=== PATIENT | female | born 1985 | race Caucasian/White ===

== ENCOUNTER 2023-07-23 08:15 | Emergency (ER) | payer BC, SELFPAY ==
[2023-07-23 08:18] VITALS: BP 127/77
--- NOTE | 2023-07-23 09:04 | ED.GENMED ---
History of Present Illness
General
Chief Complaint: Skin Problem
Source: patient
Time Seen by Provider: 07/23/23 08:45
Travel History
Have you had any contact with someone who has COVID-19?: No
Do you have any symptoms of coronavirus? Fever > 100 degrees, chills, cough, shortness of breath, sore throat, loss of taste or smell, muscle aches, or headache?: No
History of Present Illness
History of Present Illness:
37-year-old female presenting emergency department for evaluation after excellently cutting her left hand when a lamp broke apart in her left hand sustaining laceration to the ulnar aspect of the hand as well as 2 separate smaller abrasions on the
middle finger and thumb. Tetanus vaccine is up-to-date. No other injuries were sustained. Patient is right-hand dominant.
Past History
Past History
ED Past Medical History: None
ED Past Surgical History: Gynecological
Social History
Tobacco: Non-smoker
Alcohol: Occasional
Drug: None
Personal:
Living: with family
Employment: Employed
Family History
Family History: Other (No history of migraine, uncle with cerebral aneurysm)
Review of Systems
Review of Systems
All Other Systems: ROS reviewed and negative except as documented in HPI and ROS
Phy Exam
Physical Exam
Physical Exam:
GENERAL: Alert , in no apparent distress
EYE: conjunctiva clear
Head: Normocephalic atraumatic
NECK: Supple,
ENT: mmm.
LUNGS: no acute respiratory distress
NEUROLOGICAL: Alert and oriented
SKIN: Warm and dry, distal fifth metacarpal level has a V shaped very superficial laceration measuring less than 1 cm in size. There is a vertically oriented abrasion aspect thumb with no active bleeding. There are 2 separate smaller abrasions
over the palmar surface of the middle finger distal phalanx and the distal phalanx palmar surface of the thumb.
MUSCULOSKELETAL: well perfused. Full range of motion of all digits.
PSYCH: Normal and appropriate interaction.
Scores
Heart Failure Risk
Heart Failure Risk Score: Not Applicable
Heart Score for Chest Pain Patients
STEMI patient?: Not applicable
Withdrawal Assessment of Alcohol
Withdrawal Assessment Completed?: Not applicable
Course
Orders/Labs/Results
Orders:
Orders
07/23/23 09:00
Tetanus/Diphth/Acelpertussis [Adacel] 0.5 ml IM .ONCE ONE
Vital Signs
Initial and Last Documented VS:
Initial Vital Signs
Temp Resp BP Pulse Ox
98.5 F 16 127/77 100
07/23/23 08:18 07/23/23 08:18 07/23/23 08:18 07/23/23 08:18
Last Documented Vital Signs
Temp Resp BP Pulse Ox
98.5 F 16 127/77 100
07/23/23 08:18 07/23/23 08:18 07/23/23 08:18 07/23/23 08:18
Procedures
Laceration Closure
Left Distal Hand:
Status of Wound: clean
Size of Wound in cm: 0.9
Description of Wound Edges: sharp
Preparation: cleaned with saline
Revision/Debridement: routine- no revision
Type of Closure: Dermabond-skin glue
MDM/Problems Addressed
MDM/Problems Addressed:
Dermabond was placed over the hand laceration at the level of the fifth metacarpal and along the lateral fifth digit. Dressing was placed over this. Patient advised on wound care. Motrin/Tylenol for pain as needed. Patient is otherwise stable
for discharge home.
*Pulse Oximetry
Patient hypoxic: no
*Critical Care Note
Total Time (30-74mins, 75-104mins- exclusive of procedures): Not Applicable
ED Attending Note
-
Portions of this chart may have been created with voice recognition software.� Occasional wrong word or��sound alike� substitutions may have occurred due to the inherent limitations of voice recognition software.
Discharge Plan
Departure
Patient Disposition: Home (Routine Discharge)
Date of Disposition: 07/23/23
Time of Disposition: 09:04
Patient with high blood pressure during this ER visit?: No
Discharge Problem:
Laceration of hand, left
Instructions: Laceration Repair With Glue (DC)
Prescriptions:
No Action
[id number] 1 mg Tablet
1 tab PO DAILY
acetaminophen 325 mg Tablet
650 mg PO Q4HPRN PRN (Reason: mild pain) Qty: 0 0RF
ibuprofen 600 mg Tablet
600 mg PO Q6HPRN PRN (Reason: moderate pain/cramps) Qty: 0 0RF
Referrals:
NONE,* [Family Provider] -
Interventions
Interventions:
*Risk Screen - Suicide Last Done: 07/23/23 09:00
*General Assessment Last Done: 07/23/23 09:00
*Neglect/Abuse Screening Last Done: 07/23/23 09:00
ED- Fall Risk Assessment Last Done: 07/23/23 09:00
*ED COVID-19 Vaccine History Last Done: 07/23/23 08:18
*Nursing Disposition Last Done: 07/23/23 09:14
ED-Skin Assessment Last Done: 07/23/23 09:00
--- NOTE | 2023-07-23 09:14 | EDRN ---
Discharge instructions reviewed with patient. Verbalized understanding.
== END 2023-07-23 09:15 | disposition home or self-care (01) ==
LOC: EMR 08:15
PROVIDERS: EMERGENCY PHYSICIAN Student in an Organized Health Care Education/Training Program
DX: S61.412A Laceration without foreign body of left hand, initial encounter (principal); W26.8XXA Contact with other sharp object(s), not elsewhere classified, initial encounter
CPT/HCPCS: 99282; 12001

== ENCOUNTER 2023-10-10 12:54 | Emergency (ER) | payer BC, SELFPAY ==
[2023-10-10 13:04] VITALS: BP 119/78
[2023-10-10] MEDS: NSS 1000 IV (15:32)
[2023-10-10] MEDS: BENADRYL 25 MG IV (15:33)
[2023-10-10] MEDS: REGLAN 10 MG IV (15:34)
[2023-10-10] MEDS: TORADOL 30 MG IV (15:35)
[2023-10-10 15:41] VITALS: BP 107/81
[2023-10-10 15:49] LABS: % Basophils 0.4 % (0-2); % Eosinophils 0.9 % (0-6); % Immature Granulocytes 0.1 % (0-0.5); % Lymphocytes 22.9 % (20.5-51.1); % Monocytes 8.5 % (1.7-9.3); % Neutrophils 67.2 % (42.2-75.2); Absolute Eosinophils 0.1 10^3/uL (0-0.7); Absolute Lymphocytes 1.6 10^3/uL (1.2-3.4); Absolute Monocytes 0.6 10^3/uL (0.1-0.6); Absolute Neutrophils 4.7 10^3/uL (1.4-6.5); Hemoglobin 12.6 g/dL (12.0-16.0); Mean Corpuscular Hgb 31.8 pg (27.0-31.0); Mean Corpuscular Volume 90.9 fL (81.0-99.0); Mean Platelet Volume 8.9 fL (7.4-10.4); Nucleated Red Blood Cells % 0 %; Platelet Count 304 10^3/uL (130-400); Red Blood Cell Count 3.96 10^6/uL (4.20-5.40); Red Cell Dist. Width 12.9 % (11.5-14.5)
[2023-10-10 16:00] VITALS: BP 99/70
[2023-10-10 16:03] LABS: COVID-19 Antigen Negative (Negative); HCG, Serum Qualitative Screen Negative
[2023-10-10 16:05] LABS: Blood Urea Nitrogen 7 mg/dl (7-17); Calcium 9.7 mg/dl (8.4-10.2); Carbon Dioxide 24 mmol/L (22-30); Chloride 107 mmol/L (98-107); Glucose 93 mg/dl (70-99); Sodium 141 mmol/L (135-145); eGFR > 60.00
[2023-10-10 16:23] VITALS: BP 103/74
--- NOTE | 2023-10-10 16:46 | ED.GENMED ---
History of Present Illness
General
Chief Complaint: Headache
Source: patient
Time Seen by Provider: 10/10/23 14:58
Travel History
Have you had any contact with someone who has COVID-19?: No
Do you have any symptoms of coronavirus? Fever > 100 degrees, chills, cough, shortness of breath, sore throat, loss of taste or smell, muscle aches, or headache?: No
History of Present Illness
History of Present Illness:
38-year-old female presenting to the emergency department for evaluation of a frontal headache that started yesterday, today pain started more in the posterior portion of her head and neck and going down into her lower back. Patient attempted
Motrin, Tylenol, Sudafed and DayQuil with no relief. She states that yesterday she also had a slight sore throat and some congestion which seems to be improved today. Patient denies any fevers, chills, rigors, nausea, vomiting, visual
disturbances, focal weakness or numbness or any other concerns. She does note history of intermittent migraines in the past but states this headache does feel a little bit different as her headaches are normally improved with OTC meds.
Past History
Past History
ED Past Medical History: None
ED Past Surgical History: Gynecological
Social History
Tobacco: Non-smoker
Alcohol: Occasional
Drug: None
Personal:
Living: with family
Employment: Employed
Family History
Family History: Other (No history of migraine, uncle with cerebral aneurysm)
Review of Systems
Review of Systems
All Other Systems: ROS reviewed and negative except as documented in HPI and ROS
Phy Exam
Physical Exam
Physical Exam:
GENERAL: Alert , in no apparent distress
EYE: conjunctiva clear
NECK: Supple, no significant adenopathy. no meningismus
ENT: o/p clr, mmm.
CARDIAC: Regular rate and rhythm
LUNGS: Clear breath sounds bilaterally, no acute respiratory distress, no wheezes/rales/rhonchi
NEUROLOGICAL: Alert and oriented
SKIN: Warm and dry, skin intact.
MUSCULOSKELETAL: well perfused.
PSYCH: Normal and appropriate interaction.
Scores
Heart Failure Risk
Heart Failure Risk Score: Not Applicable
Heart Score for Chest Pain Patients
STEMI patient?: Not applicable
Withdrawal Assessment of Alcohol
Withdrawal Assessment Completed?: Not applicable
Course
Orders/Labs/Results
Orders:
Orders
10/10/23 15:18
0.9% Sodium Chloride 1000 ml [Nss] 1,000 ml IV BOLUS
Diphenhydramine [Benadryl] 25 mg IV NOW STA
Ketorolac [Toradol] 30 mg IV NOW STA
Metoclopramide [Reglan] 10 mg IV NOW STA
Test Result ONCE
10/10/23 15:32
Basic Metabolic Panel Urgent
COVID-19 Antigen Urgent
Source: Nasal Swab
Complete Blood Count/With Diff Urgent
HCG, Serum Qualitative Screen Urgent
Abnormal Lab Results
10/10/23
15:32
RBC 3.96 L 10^6/uL
(4.20-5.40)
Hct 36.0 L %
(37.0-47.0)
MCH 31.8 H pg
(27.0-31.0)
10/10/23 15:32
10/10/23 15:32
Vital Signs
Initial and Last Documented VS:
Initial Vital Signs
Temp Pulse Resp BP Pulse Ox
98.1 F 79 18 119/78 100
10/10/23 13:04 10/10/23 13:04 10/10/23 13:04 10/10/23 13:04 10/10/23 13:04
Last Documented Vital Signs
Temp Pulse Resp BP Pulse Ox
98.1 F 79 18 103/74 100
10/10/23 13:04 10/10/23 16:57 10/10/23 13:04 10/10/23 16:57 10/10/23 13:04
MDM/Problems Addressed
Differential Diagnosis Includes:
Migraine headache, tension headache, muscle spasm, I do not have concern for intracranial bleeding nor meningitis
MDM/Problems Addressed:
38-year-old female presenting to the emergency department for evaluation of headache and lower back pain. Attempted dzkq-[id number]-[id number] measures at home with minimal relief. Patient's exam is otherwise reassuring and she is in no acute distress.
Will treat with migraine cocktail, fluids. Lab work ordered. Reassessment following.
*Pulse Oximetry
Patient hypoxic: no
*Critical Care Note
Total Time (30-74mins, 75-104mins- exclusive of procedures): Not Applicable
Data Reviewed
Further Testing Considered But Not Given:
Considered head CT but given lack of physical exam findings decision was made to forego this for the time being but if symptoms do not improve will obtain CT to further evaluate
Patient Management
Escalation/DeEscalation of care consider admission/obs:
Patient reports headache is fully resolved. Still notes some mild discomfort in her back but feels well and would like to be discharged home. Aware of return precautions but otherwise stable for discharge home
ED Attending Note
-
Portions of this chart may have been created with voice recognition software.� Occasional wrong word or��sound alike� substitutions may have occurred due to the inherent limitations of voice recognition software.
Discharge Plan
Departure
Patient Disposition: Home (Routine Discharge)
Date of Disposition: 10/10/23
Time of Disposition: 16:46
Patient with high blood pressure during this ER visit?: No
Discharge Problem:
Headache
Instructions: Headache, Adult (DC)
Prescriptions:
No Action
ckjnopqo-mxw-Pd-FA 1 mg Tablet
1 tab PO DAILY
acetaminophen 325 mg Tablet
650 mg PO Q4HPRN PRN (Reason: mild pain) Qty: 0 0RF
ibuprofen 600 mg Tablet
600 mg PO Q6HPRN PRN (Reason: moderate pain/cramps) Qty: 0 0RF
Referrals:
NONE,* [Family Provider] -
Interventions
Interventions:
*Risk Screen - Suicide Last Done: 10/10/23 13:04
*General Assessment Last Done: 10/10/23 13:04
*Neglect/Abuse Screening Last Done: 10/10/23 13:04
*Nursing Disposition Last Done: 10/10/23 16:57
ED-Musculoskeletal Assessment Last Done: 10/10/23 15:39
ED- Neurological Assessment Last Done: 10/10/23 15:39
Discharge Date and Time
Discharge Date/Time: 10/10/23 16:57
Print Language: YORUBA
[2023-10-10 16:57] VITALS: BP 103/74
== END 2023-10-10 16:57 | disposition home or self-care (01) ==
LOC: EMR 12:54
PROVIDERS: Physician Assistant Medical; EMERGENCY PHYSICIAN Emergency Medicine
DX: R51.9 Headache, unspecified (principal); M54.50 Low back pain, unspecified; Z11.52 Encounter for screening for COVID-19
CPT/HCPCS: 99284; 96374; 96375 ×2; 96361; 80048; 84703; 85025; 87811

== ENCOUNTER → 2024-06-15 15:43 | Outpatient (REF) | payer OTHER, SELFPAY | LOC: PNTC 15:43 | PROVIDERS: ATTENDING PHYSICIAN Student in an Organized Health Care Education/Training Program | DX: Z36.0 Encounter for antenatal screening for chromosomal anomalies (principal); Z36.82 Encounter for antenatal screening for nuchal translucency | CPT/HCPCS: 76801; 76813 ==

== ENCOUNTER → 2024-08-10 15:47 | Outpatient (REF) | payer OTHER, SELFPAY | LOC: PNTC 15:47 | PROVIDERS: ATTENDING PHYSICIAN Student in an Organized Health Care Education/Training Program | DX: O09.519 Supervision of elderly primigravida, unspecified trimester (principal) | CPT/HCPCS: 76811; 76817 ==

== ENCOUNTER → 2024-09-11 09:19 | Outpatient (REF) | payer OTHER, SELFPAY | LOC: REG 09:19 | PROVIDERS: ATTENDING PHYSICIAN Student in an Organized Health Care Education/Training Program | DX: Z34.80 Encounter for supervision of other normal pregnancy, unspecified trimester (principal) | CPT/HCPCS: 36415; 86850; 86900; 86901 ==

== ENCOUNTER → 2024-09-21 09:42 | Outpatient (REF) | payer OTHER, SELFPAY | LOC: PNTC 09:42 | PROVIDERS: ATTENDING PHYSICIAN Obstetrics & Gynecology | DX: O09.522 Supervision of elderly multigravida, second trimester (principal); O43.192 Other malformation of placenta, second trimester | CPT/HCPCS: 76816; 96372 ==

== ENCOUNTER → 2024-11-02 09:24 | Outpatient (REF) | payer OTHER, SELFPAY | LOC: PNTC 09:24 | PROVIDERS: ATTENDING PHYSICIAN Obstetrics & Gynecology | DX: O09.513 Supervision of elderly primigravida, third trimester (principal); O43.193 Other malformation of placenta, third trimester | CPT/HCPCS: 76816 ==

== ENCOUNTER → 2024-11-23 08:51 | Outpatient (REF) | payer OTHER, SELFPAY | LOC: PNTC 08:51 | PROVIDERS: ATTENDING PHYSICIAN Obstetrics & Gynecology | DX: O09.513 Supervision of elderly primigravida, third trimester (principal); O43.103 Malformation of placenta, unspecified, third trimester | CPT/HCPCS: 59025; 76815 ==

== ENCOUNTER → 2024-11-30 08:57 | Outpatient (REF) | payer OTHER, SELFPAY | LOC: PNTC 08:57 | PROVIDERS: ATTENDING PHYSICIAN Obstetrics & Gynecology | DX: O09.529 Supervision of elderly multigravida, unspecified trimester (principal) | CPT/HCPCS: 59025; 76816 ==

== ENCOUNTER → 2024-12-07 08:54 | Outpatient (REF) | payer OTHER, SELFPAY | LOC: PNTC 08:54 | PROVIDERS: ATTENDING PHYSICIAN Obstetrics & Gynecology | DX: O09.529 Supervision of elderly multigravida, unspecified trimester (principal) | CPT/HCPCS: 36415; 59025; 76815 ==

== ENCOUNTER → 2024-12-14 08:58 | Outpatient (REF) | payer OTHER, SELFPAY | LOC: PNTC 08:58 | PROVIDERS: ATTENDING PHYSICIAN Obstetrics & Gynecology | DX: O09.523 Supervision of elderly multigravida, third trimester (principal); O09.813 Supervision of pregnancy resulting from assisted reproductive technology, third trimester; O43.193 Other malformation of placenta, third trimester | CPT/HCPCS: 59025; 76815 ==

== ENCOUNTER → 2024-12-21 08:54 | Outpatient (REF) | payer OTHER, SELFPAY | LOC: PNTC 08:54 | PROVIDERS: ATTENDING PHYSICIAN Obstetrics & Gynecology | DX: O09.523 Supervision of elderly multigravida, third trimester (principal); O09.813 Supervision of pregnancy resulting from assisted reproductive technology, third trimester; O43.193 Other malformation of placenta, third trimester | CPT/HCPCS: 59025; 76815 ==

== ENCOUNTER → 2024-12-28 08:20 | Outpatient (REF) | payer OTHER, SELFPAY | LOC: PNTC 08:20 | PROVIDERS: ATTENDING PHYSICIAN Obstetrics & Gynecology | DX: O48.0 Post-term pregnancy (principal) | CPT/HCPCS: 59025; 76815 ==

== ENCOUNTER 2024-12-29 19:27 | Inpatient (IN) | payer OTHER, SELFPAY ==
[2024-12-29 19:49] VITALS: BP 130/77; BMI 26.4
[2024-12-29] MEDS: CYTOTEC 50 MICROGRAM VAG (20:10)
[2024-12-29 20:15] LABS: Hematocrit 32.7 % (37.0-47.0); Hemoglobin 11.6 g/dL (12.0-16.0); Mean Corp Hgb Conc. 35.5 g/dL (33.0-37.0); Mean Corpuscular Volume 89.1 fL (81.0-99.0); Nucleated Red Blood Cells % 0 %; Platelet Count 211 10^3/uL (130-400); Red Cell Dist. Width 13.4 % (11.5-14.5)
[2024-12-30] MEDS: LR 1000 IV (00:41)
[2024-12-30] MEDS: FENTANYL/BUPIVACAINE 100 EPIDURAL (01:12)
[2024-12-30] MEDS: SUBLIMAZE 100 MCG EPIDURAL (01:12)
[2024-12-30 02:52] LABS: Cord ABG Comment CORD BLOOD
[2024-12-30 02:53] LABS: B.E. Cord ABG -10.1 mMOL/L; HCO3 Cord ABG 19.5 mmol/L; O2 Saturation % Cord ABG 26.7 %; PCO2 Cord ABG 56 mmHg; PO2 Cord ABG 15 mmHg; pH Cord ABG 7.15
[2024-12-30 02:57] LABS: B.E. Cord ABG -10.7 mMOL/L; HCO3 Cord ABG 16.8 mmol/L; O2 Saturation % Cord ABG 51.3 %; PCO2 Cord ABG 42 mmHg; PO2 Cord ABG 26 mmHg; pH Cord ABG 7.21
[2024-12-30] MEDS: COLACE 100 MG PO ×2 (09:25→20:05)
[2024-12-30] MEDS: PRENATAL PLUS 1 TABLET PO (09:25)
[2024-12-30] MEDS: MOTRIN 600 MG PO (18:24)
[2024-12-31] MEDS: MOTRIN 600 MG PO ×4 (00:14→23:58)
[2024-12-31 05:48] LABS: Hematocrit 32.2 % (37.0-47.0); Hemoglobin 11.4 g/dL (12.0-16.0)
[2024-12-31] MEDS: PRENATAL PLUS 1 TABLET PO (07:43)
[2024-12-31] MEDS: COLACE 100 MG PO ×2 (07:43→19:59)
[2024-12-31] MEDS: RHOGAM 300 MCG IM (11:30)
[2024-12-31] MEDS: TYLENOL 650 MG PO (13:25)
[2025-01-01] MEDS: TYLENOL 650 MG PO (03:28)
[2025-01-01] MEDS: PRENATAL PLUS 1 TABLET PO (08:57)
[2025-01-01] MEDS: COLACE 100 MG PO (08:57)
[2025-01-01] MEDS: MOTRIN 600 MG PO (09:00)
[2025-01-01 11:13] LABS: Syphilis/T. pallidum Ab Reflex Negative (Negative)
== END 2025-01-01 11:31 | disposition home or self-care (01) | DRG 807 ==
LOC: LDRP 19:27
PROVIDERS: ADMITTING PHYSICIAN Obstetrics & Gynecology
PROC: 10E0XZZ Delivery of Products of Conception, External Approach (ICD-10-PCS; 2024-12-30)
PROC: 0HQ9XZZ Repair Perineum Skin, External Approach (ICD-10-PCS; 2024-12-30)
DX: O48.0 Post-term pregnancy (principal); Z37.0 Single live birth; Z3A.41 41 weeks gestation of pregnancy; O69.81X0 Labor and delivery complicated by cord around neck, without compression, not applicable or unspecified; O70.0 First degree perineal laceration during delivery
CPT/HCPCS: 36415; 82803; 85014; 85018; 85025; 85461; 86780; 86850; 86870; 86900; 86901; 88307; J2790